=== PATIENT | male | born 1965 ===

== ENCOUNTER 2022-05-10 08:56 | Day surgery (SDC) | payer OTHER | END 2022-05-10 15:15 | disposition home or self-care (01) | LOC: AMB-ENDOS 08:56 | PROVIDERS: ATTEND Colon & Rectal Surgery | DX: K64.4 Residual hemorrhoidal skin tags (principal); K57.30 Diverticulosis of large intestine without perforation or abscess without bleeding; I10 Essential (primary) hypertension; K59.09 Other constipation; Z20.822 Contact with and (suspected) exposure to COVID-19 ==